=== PATIENT | female | born 1965 | race American Indian/Alaskan Native ===

== ENCOUNTER 2017-12-17 06:17 | Day surgery (SDC) | payer OTHER ==
--- NOTE | 2017-12-17 08:03 | Anesthesia Consultation ---
Anesthesia Consult and Med Hx Date of service: 12/17/17 - Airway Anesthetic Teeth Evaluation: Good ROM Head & Neck: Adequate Mental/Hyoid Distance: Adequate Mallampati Class: Class II Intubation Access Assessment: Probably Good - Pulmonary Exam CTA: Yes - Cardiac Exam Cardiac Exam: RRR - Pre-Operative Health Status ASA Pre-Surgery Classification: ASA3 Proposed Anesthetic Plan: MAC - Pulmonary Hx Sleep Apnea: Yes (cpap) - Cardiovascular System Hx Hypertension: Yes - Endocrine Hx Hypothyroidism: Yes - Other Systems Hx Obesity: Yes
--- NOTE | 2017-12-17 08:04 | Anesthesia Day of Surgery ---
Anesthesia Day of Surgery - Day of Surgery Patient Examined: Yes Patient H&P Reviewed: Yes Patient is NPO: Yes
[2017-12-17] MEDS ORDERED: NACL 0.9% 1000 ML 1,000 ML IV SCH (09:00)
[2017-12-17] MEDS ORDERED: DIPRIVAN 10 MG/ML IV ONE ×2 (09:58)
[2017-12-17] MEDS ORDERED: XYLOCAINE MPF 2% ONE (10:00)
[2017-12-17] MEDS ORDERED: HURRICAINE ONE 20% TOPICAL SPRAY MM ×2 (10:12→16:50)
--- NOTE | 2017-12-17 10:29 | Discharge Summary ---
Providers - Providers Attending physician: DARIA SMART Primary care physician: MORE QUARLES Hospitalization Procedures: egd Hospital course: 52 y.o. F with hx of lap gastric sleeve presented for EGD. She tolerated the procedure well. Disposition: - TO HOME OR SELFCARE Core Measure Documentation - Palliative Care Palliative Care/ Comfort Measures: Not Applicable - Core Measures Any of the following diagnoses?: history only Exam - Physical Exam Narrative exam: no changes from previous Plan Follow up with: MORE QUARLES MD [Primary Care Provider] - 7 Days
--- NOTE | 2017-12-17 10:33 | Operative Report ---
Operative Report Operative Report: OPERATIVE REPORT - EGD DATE 12/17/17 SURGERY: Upper endoscopy. SURGEON: Dr. Bishop TELEPHONE SWITCHBOARD OPERATOR: Helder Price DO PRE OP DX: hx of gastric sleeve, dyspepsia POST OP DX: same , and gastritis TYPE OF ANESTHESIA: MAC. ESTIMATED BLOOD LOSS: None. COMPLICATIONS: None. SPECIMENS REMOVED: biopsy of antrum FINDINGS: 1. Small hiatal hernia. 2. Otherwise, normal esophagus, and duodenum. 3. gastritis INDICATIONS:INDICATION FOR PROCEDURE: Patient is a 52-year-old female with a long history of morbid obesity. She has a hx of a lap gastric sleeve in January 2012. She also has a hx of a RLE DVT in 2012 after traveling on a long flight. She presents today for EGD for evaluation for her dyspepsia. PROCEDURE DETAILS: After consent was reviewed, patient was taken back to the operating room where patient was placed in the left lateral decubitus position and a bite block was placed in the mouth. After a time-out was called, MAC anesthesia was initiated. I then passed the endoscope into her oropharynx, into her esophagus, visualized the entire esophagus, which was all within normal limits. I then visualized the sleeve of the stomach and the first portion of the duodenum. The duodenum showed no abnormalities. The sleeve had normal contour without twisting. Bile reflux was noted. Gastritis of the antrum. Antral biopsy was taken. Upon exiting the stomach I noted a small hiatal hernia. I then desufflated the stomach and removed the endoscope. Patient tolerated procedure well and was transferred to recovery room in good and stable condition.
[2017-12-17 11:06] VITALS: BP 120/75
--- NOTE | 2017-12-17 14:18 | Post Anesthesia Evaluation ---
- Post Anesthesia Evaluation Patient Participated: Yes Airway Patent: Yes Stable Respiratory Function: Yes Nausea/Vomiting: No Temp > 96.8F: Yes Pain Manageable: Yes Adequeate Hydration: Yes Anesthesia Complications: No Block Receding Appropriately: Not Applicable
[2017-12-17] MEDS ORDERED: WATER FOR IRRIG STERILE IR ONE (16:50)
== END 2017-12-17 06:18 | disposition home or self-care (01) ==
LOC: GIO 06:17
PROVIDERS: ATTEND Specialist
DX: K29.70 Gastritis, unspecified, without bleeding (principal); K44.9 Diaphragmatic hernia without obstruction or gangrene; K21.9 Gastro-esophageal reflux disease without esophagitis; I10 Essential (primary) hypertension; E03.9 Hypothyroidism, unspecified; E66.01 Morbid (severe) obesity due to excess calories; G47.33 Obstructive sleep apnea (adult) (pediatric); Z86.718 Personal history of other venous thrombosis and embolism; Z79.01 Long term (current) use of anticoagulants; Z99.89 Dependence on other enabling machines and devices; Z68.45 Body mass index [BMI] 70 or greater, adult
CPT/HCPCS: 43239; 81025; 88305; 88342; J2704